=== PATIENT | female | born 1960 | race Two or more races ===

== ENCOUNTER 2017-06-17 13:14 | Emergency (ER) | payer MEDICARE, OTHER ==
[~2017-06-17] VITALS: Ht 157.5 cm; Wt 68.0 kg
--- NOTE | 2017-06-17 13:14 | NUR ---
BBRA FROM DENTIST OFFICE: S/P WITNESSED SEIZURE. Hx OF SEIZURES. NAD NOTED. PT PLACED ON MONITOR. VSS. PENDING MD SLATER.
[2017-06-17 14:29] LABS: CALCIUM, SERUM 8.8 mg/dL (8.5-10.1); CREATININE 1.3 mg/dL (0.6-1.3); POTASSIUM 4.5 mmol/L (3.5-5.1)
[2017-06-17] MEDS ORDERED: IV NS 0.9% 1,000 ML IV PRN (15:00)
[2017-06-17 16:03] VITALS: BP 124/71
== END 2017-06-17 16:05 | disposition home or self-care (01) ==
LOC: ER 13:30
DX: G40.909 Epilepsy, unspecified, not intractable, without status epilepticus (principal); I10 Essential (primary) hypertension; E11.9 Type 2 diabetes mellitus without complications; F17.200 Nicotine dependence, unspecified, uncomplicated; E03.9 Hypothyroidism, unspecified; Z88.6 Allergy status to analgesic agent; Z88.5 Allergy status to narcotic agent; Z86.73 Personal history of transient ischemic attack (TIA), and cerebral infarction without residual deficits
CPT/HCPCS: 36415; 80048-TC; 84484-TC; A4606; J7030; Z7610

== ENCOUNTER 2018-06-30 12:04 | Inpatient (IN) | payer MEDICARE, OTHER ==
[~2018-06-30] VITALS: Ht 157.5 cm; Wt 63.5 kg
[2018-06-30 08:40] VITALS: BP 132/92
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
[2018-06-30] MEDS ORDERED: LORAZEPAM INJ 2 MG/ML VIAL ONE ×3 (12:24→16:46)
[2018-06-30] MEDS ORDERED: LORAZEPAM INJ 2 MG/ML VIAL IVP ONE (12:30)
[2018-06-30 12:35] LABS: BASOPHILS # (AUTO) 0.1 /CMM (0.0-0.2); BASOPHILS % (AUTO) 1.5 % (0.0-2.0); EOSINOPHILS % (AUTO) 0.9 % (0.0-6.0); HEMATOCRIT 35 % (33-45); HEMOGLOBIN 11.8 g/dL (11.5-14.8); MEAN CORPUSCULAR HGB CONC 34 g/dl (31.0-36.0); MEAN CORPUSCULAR VOLUME 98 fL (82-100); MONOCYTES # (AUTO) 0.3 /CMM (0.1-1.30); MONOCYTES % (AUTO) 9.1 % (2.0-12.0); NEUTROPHILS % (AUTO) 58.5 % (43.0-81.0); PLATELET COUNT (AUTO) 132 /CMM (150-450); RED BLOOD CELL COUNT(AUTO) 3.56 MIL/uL (4.0-5.2); WHITE BLOOD COUNT (AUTO) 3.5 K/uL (4.3-11.0)
[2018-06-30 12:45] LABS: CALCIUM, SERUM 8.3 mg/dL (8.5-10.1); CREATININE 0.9 mg/dL (0.6-1.3); POTASSIUM 3.6 mmol/L (3.5-5.1)
--- NOTE | 2018-06-30 13:07 | NUR ---
PT TAKEN TO RADIOLOGY VIA [facility]
--- NOTE | 2018-06-30 13:15 | NUR ---
PER RADIOLOGY, PT UNABLE TO SIT STILL FOR CT. NOTIFIED.
[2018-06-30] MEDS ORDERED: LORAZEPAM INJ 2 MG/ML VIAL IV ONE ×2 (13:30→17:00)
--- NOTE | 2018-06-30 14:01 | NUR ---
DAUGHTER AT BEDSIDE
--- NOTE | 2018-06-30 14:13 | NUR ---
DR BRITTON AT BEDSIDE
[2018-06-30] MEDS: LEVETIRACETAM (500MG) 1,000 MG in IV NS 0.9% 100 ML IV SCH (15:07)
--- NOTE | 2018-06-30 15:30 | NUR ---
PT CONTINUOUSLY BENDING ELBOW, IV CAME OUT. DIFFICULTY STARTING NEW IV, PT NOT SITTING STILL. WILL CONFER WITH CHARGE NURSE.
--- NOTE | 2018-06-30 16:40 | NUR ---
DR CORTES AT BEDSIDE
--- NOTE | 2018-06-30 17:08 | NUR ---
CALLED HOUSE FOR [facility] BED
--- NOTE | 2018-06-30 17:08 | NUR ---
TELE BED 322-5
--- NOTE | 2018-06-30 17:09 | NUR ---
REGGIE FOR INSURANCE APPROVAL
--- NOTE | 2018-06-30 17:12 | NUR ---
PT ASLEEP, DESATTING TO 92%. PLACED ON 2L O2 VIA NC PER DR CORTES. NOW AT 98%
--- NOTE | 2018-06-30 17:53 | NUR ---
MED RECON NURSE AT BEDSIDE
[2018-06-30] MEDS ORDERED: VANCOMYCIN 1 GM VIAL ONE (17:59)
[2018-06-30] MEDS ORDERED: VANCOMYCIN 1 GM in IV D5W 250 ML IV ONE (18:00)
[2018-06-30] MEDS ORDERED: OMEG1CAP55 PO (18:27)
[2018-06-30] MEDS ORDERED: BUPR150T10 PO (18:27)
[2018-06-30] MEDS ORDERED: PRED10TA PO (18:27)
[2018-06-30] MEDS ORDERED: LEVE1000 PO (18:27)
[2018-06-30] MEDS ORDERED: CYCL5TAB PO (18:27)
[2018-06-30] MEDS ORDERED: METH2.5T PO (18:27)
[2018-06-30] MEDS ORDERED: ATOR10TA PO (18:27)
[2018-06-30] MEDS ORDERED: METF-440 PO (18:27)
[2018-06-30] MEDS ORDERED: LEFL20TA PO (18:27)
[2018-06-30] MEDS ORDERED: TRAM50TA2 PO (18:27)
[2018-06-30] MEDS ORDERED: RANI150T8 PO (18:27)
[2018-06-30] MEDS ORDERED: FOLI1TAB16 PO (18:27)
[2018-06-30] MEDS ORDERED: HYDR-3203 PO (18:27)
[2018-06-30] MEDS ORDERED: ENAL20TA PO (18:27)
[2018-06-30] MEDS ORDERED: GABA-534 PO (18:27)
[2018-06-30] MEDS ORDERED: LEVO50TA8 PO (18:27)
[2018-06-30] MEDS ORDERED: OMEP20CA10 PO (18:27)
[2018-06-30] MEDS ORDERED: SERT50TA PO (18:27)
[2018-06-30] MEDS ORDERED: SULF500T46 PO (18:27)
[2018-06-30] MEDS ORDERED: CLOP75TA15 PO (18:27)
[2018-06-30] MEDS ORDERED: MISO200T PO (18:27)
--- NOTE | 2018-06-30 18:36 | NUR ---
REPORT GIVEN TO AVINASH FALL FOR 322-1 TELE.
[2018-06-30] MEDS ORDERED: NORT75CA PO (18:44)
[2018-06-30] MEDS ORDERED: GABA600T12 PO (18:44)
[2018-06-30] MEDS ORDERED: CEPH500C2 PO (18:45)
--- NOTE | 2018-06-30 18:58 | NUR ---
PT TRANSFERRED TO [facility] [facility]IA [facility]. REPORT TO AVINASH PYLE FOR [facility]
[2018-06-30] MEDS ORDERED: Thiamine 100 MG in IV D5W 50 ML IV SCH ×2 (19:00→20:00)
[2018-06-30] MEDS ORDERED: MAGNESIUM HYDROXIDE 30 ML UDC PO PRN (19:00)
[2018-06-30] MEDS ORDERED: ENOXAPARIN SODIUM 40 MG/0.4 ML DISP.SYRIN SQ SCH (19:00)
[2018-06-30] MEDS ORDERED: ACETAMINOPHEN 325 MG TABLET PO PRN (19:00)
[2018-06-30] MEDS ORDERED: Z GUARD REMEDY 2 OZ OINT TP PRN (19:00)
[2018-06-30] MEDS ORDERED: MAG HYDROX/AL HYDROX/SIMETH 30 ML UDC PO PRN (19:00)
[2018-06-30] MEDS ORDERED: LORAZEPAM INJ 2 MG/ML VIAL IV PRN (19:00)
[2018-06-30] MEDS ORDERED: ONDANSETRON HCL/PF 4 MG/2 ML VIAL IVP PRN (19:00)
--- NOTE | 2018-06-30 19:00 | NUR ---
TELE/RN NOTES' PATIENT WAS RECEIVED FROM ER, REPORT MADE TO JUAN DAVID RN BY DEAN RN , PATIENT ARRIVED ON A GURNEY ACCOMPANIED BY DAUGHTER LINWOOD. RECEIVED FROM RN THAT ATIVAN 2 MG WAS GIVEN 1700. ON 2 LITER OXYGEN VIA NC WITH VITAL SIGNS 114/75, PULSE 83, R- 18, TEMPERATURE 97.5 ON 2 LITER AT 100% OXYGENATION, UNABLE TO AROUSE, IN DEEP ,SNORING, , SKIN WARM TO TOUCH. TELE READING SR 86 WITH PBB/ PATIENT ADMITTED DUE TO SEIZURE EPISODE AND WAS REPORTED TO HAVE HAD ALCOHOL INTOXICATION.BELONGINGS CHECKED, ON NPO, LEFT WRIST GAUGE IV VANCOMYCIN GIVEN AT ER, WITH ORDERS ENTERED BY MD TO GIVE . NO SKIN ISSUES NOTED.
--- NOTE | 2018-06-30 19:00 | NUR ---
IV ABX CONTINUE TO INFUSE ON THE FLOOR
[2018-06-30] MEDS ORDERED: FEE PK DOSING 1 MIN EA MC ONE (19:23)
[2018-06-30 20:00] VITALS: BP 114/75
--- NOTE | 2018-06-30 20:00 | NUR ---
TELE/RN OPENING NOTES RECEIVED FROM LUZ DAVIS CLARIFIED THAT PATIENT NEED TO BE TRANSFERED TO [facility] FOR MONITORING. OF SEIZURE. CHARGE NURSE MADE AWARE, AND CABRERA ARMATURE VARNISHER WITH [facility] ROOM 105. TO GIVE REPORT DO [facility] . DAUGHTER TO CALL FOR TRANSFER.
--- NOTE | 2018-06-30 20:40 | NUR ---
[facility] ADMISSION/TRANSFER NOTE PATIENT RECEIVED FROM [facility] IN BED. PATIENT LETHARGIC UNABLE TO VOCALIZE. PATIENT CAN OPEN EYES TO COMMANDS ARE LIGHT SHAKING. PATIENT HAS 20 G IN L HAND PATENT AND INTACT NO S/S OF INFILTRATION. PATIENT 02 SATURATION 100 ON 2L. PATIENT BREATHING EVEN AND UNLABORED. PATIENT IN SO APPARENT S/S OF RESPIRATORY/ CARDIAC DISTRESS. RN WILL CONTINUE TO MONITOR SEIZURE PRECAUTIONS IN PLACE. BED IN LOWEST LOCKED POSITION.
[2018-06-30] MEDS: LEVETIRACETAM SOL (5 ML) 100 MG/ML UDC PO SCH ×2 (21:00→21:17)
[2018-06-30] MEDS: IV NS 0.9% 1,000 ML IV PRN (21:17)
--- NOTE | 2018-06-30 23:55 | NUR ---
RIAN RN NOTE PATIENT AWOKE A/O X 4. PATIENT DENIES CHEST PAIN/ SOB. PATIENT ABLE TO WALK TO THE RESTROOM WITH ASSISTANCE, BEDSIDE COMMODE PROVIDED. INSTRUCTED PATIENT USE CALL LIGHT FOR ANY REASON AND TO CALL WHEN PATIENT NEEDS TO USE THE RESTROOM. PATIENT AGREED.
[2018-07-01] VITALS: BP 113/80
[2018-07-01] MEDS ORDERED: LEVETIRACETAM (500MG) 500 MG/5 ML VIAL IV ONE (03:13)
[2018-07-01] MEDS: LEVETIRACETAM (500MG) 1,000 MG in IV NS 0.9% 100 ML IV SCH (03:22)
[2018-07-01 04:00] VITALS: BP 104/64
[2018-07-01] MEDS ORDERED: VANCOMYCIN 0.75 GM in IV D5W 250 ML IV SCH (06:00)
[2018-07-01 07:06] LABS: BASOPHILS % (AUTO) 0.3 % (0.0-2.0); EOSINOPHILS % (AUTO) 1.3 % (0.0-6.0); HEMATOCRIT 31 % (33-45); HEMOGLOBIN 10.6 g/dL (11.5-14.8); LYMPHOCYTES # (AUTO) 0.9 /CMM (0.8-4.8); LYMPHOCYTES % (AUTO) 21.8 % (20.0-44.0); MEAN CORPUSCULAR HGB CONC 34 g/dl (31.0-36.0); MEAN CORPUSCULAR VOLUME 97 fL (82-100); MONOCYTES # (AUTO) 0.4 /CMM (0.1-1.30); MONOCYTES % (AUTO) 8.8 % (2.0-12.0); NEUTROPHILS # (AUTO) 2.8 /CMM (1.8-8.9); NEUTROPHILS % (AUTO) 67.8 % (43.0-81.0); PLATELET COUNT (AUTO) 119 /CMM (150-450); RED BLOOD CELL COUNT(AUTO) 3.24 MIL/uL (4.0-5.2); WHITE BLOOD COUNT (AUTO) 4.1 K/uL (4.3-11.0)
[2018-07-01 07:24] LABS: THYROID STIMULATING HORMONE 0.602 uIU/mL (0.358-3.74)
[2018-07-01 07:27] LABS: CALCIUM, SERUM 8.7 mg/dL (8.5-10.1); CREATININE 0.9 mg/dL (0.6-1.3); MAGNESIUM 1.3 mg/dL (1.8-2.4); PHOSPHORUS 3.1 mg/dL (2.5-4.9); POTASSIUM 3.7 mmol/L (3.5-5.1)
--- NOTE | 2018-07-01 07:30 | NUR ---
RN NOTES RECEIVED PATIENT IN BED AND SLEEPING COMFORTABLY. EASILY AROUSABLE. PATIENT IS ALERT AND ORIENTED X4. NO PAIN OR ACUTE DISTRESS AT THIS TIME. RESPIRATION EVEN AND UNLABORED. SKIN IS DRY WARM TO TOUCH. NOTED WITH IV ACCESS ON LEFT HAND. PLAN OF CARE DISCUSSED WITH PATIENT. ALL NEED ANTICIPATED. SAFETY MEASURES OBSERVED. WILL CONTINUE TO MONITOR.
[2018-07-01 08:00] VITALS: BP 145/98
[2018-07-01] MEDS ORDERED: VIT B CMPLX 3/FA/VIT C/BIOTIN 1 TAB TABLET PO SCH (09:00)
[2018-07-01] MEDS ORDERED: PANTOPRAZOLE 40 MG VIAL IV SCH (09:00)
[2018-07-01] MEDS: LEVETIRACETAM SOL (5 ML) 100 MG/ML UDC PO SCH (09:17)
[2018-07-01] MEDS ORDERED: OMEPRAZOLE 20 MG CAPSULE.DR PO PRN (10:30)
[2018-07-01] MEDS ORDERED: THIAMINE HCL 100 MG TABLET PO SCH (12:00)
[2018-07-01] MEDS: GABAPENTIN 300 MG CAPSULE PO SCH ×2 (12:40→17:45)
[2018-07-01] MEDS: Magnesium 1GM/D5W 100ML PREMIX 100 ML IV SCH ×4 (12:40→16:09)
[2018-07-01] MEDS ORDERED: ENALAPRIL MALEATE (10 MG) 10 MG TABLET PO SCH (13:00)
[2018-07-01] MEDS ORDERED: SULFASALAZINE 500 MG TABLET PO SCH ×2 (13:00→17:00)
[2018-07-01] MEDS: IV NS 0.9% 1,000 ML IV PRN (14:07)
[2018-07-01] MEDS ORDERED: DEXTROSE 50%-WATER 50 ML DISP.SYRIN IV PRN (15:00)
[2018-07-01] MEDS ORDERED: INSULIN REGULAR, HUMAN 100 UNIT/ML 3 ML VIAL SQ PRN (15:00)
[2018-07-01 16:00] VITALS: BP 133/88
[2018-07-01] MEDS ORDERED: MISOPROSTOL 100 MCG TABLET PO SCH (17:00)
[2018-07-01] MEDS ORDERED: Medication Not On Formulary EA (Levetiracetam (Keppra) 1,000 MG) PO SCH (17:00)
[2018-07-01] MEDS ORDERED: Medication Not On Formulary EA (Omega-3 Acid Ethyl Esters (Lovaza) 2 CAP) PO SCH (17:00)
[2018-07-01] MEDS ORDERED: buPROPion SR 150 MG TABLET.ER PO SCH (17:00)
[2018-07-01] MEDS ORDERED: HYDROXYCHLOROQUINE 200 MG TABLET PO SCH (17:00)
[2018-07-01] MEDS ORDERED: BLOOD SUGAR DIAGNOSTIC 1 EACH STRIP IN SCH (17:30)
[2018-07-01] MEDS ORDERED: SUCRALFATE 1 G TABLET PO SCH (17:30)
[2018-07-01] MEDS ORDERED: NORT25CA PO (17:46)
[2018-07-01] MEDS ORDERED: PRED5TAB48 PO (17:47)
[2018-07-01] MEDS ORDERED: LEFL20TA PO (17:48)
[2018-07-01] MEDS ORDERED: SULF500T8 PO (17:49)
[2018-07-01] MEDS ORDERED: HYDR200T81 PO (17:50)
[2018-07-01] MEDS ORDERED: SUCR1TAB31 PO (17:53)
[2018-07-01] MEDS ORDERED: CYCLOBENZAPRINE 10 MG TABLET PO SCH (18:00)
[2018-07-01] MEDS ORDERED: ATORVASTATIN 10 MG TABLET PO SCH (18:00)
--- NOTE | 2018-07-01 18:41 | NUR ---
Met with patient, she is alert and pleasant. States she lives locally with her brother in law in a single level home. She ambulates without assistive device. She has hx of diabetes and reports she has a glucometer at home to monitor her blood sugar. She plan to return home, brother in law Ross Dorado [phone] will provide ride when discharge. Addendum: 07/01/18 at 1842 by LUANN MORENO RN Amended: Links added.
--- NOTE | 2018-07-01 19:00 | NUR ---
MS RN NOTES IV REMOVED.
--- NOTE | 2018-07-01 19:09 | NUR ---
MS RN NOTES PT INSISTING ON LEAVING HOSPITAL AMA. LUZ PAGE NP NOTIFIED. TRIED TO MAKE CONTACT WITH FAMILY BUT UNSUCCESSFUL. CHARGE NURSE NOTIFIED.
[2018-07-01] MEDS ORDERED: TRAMADOL HCL 50 MG TABLET PO SCH (21:00)
[2018-07-01] MEDS ORDERED: NORTRIPTYLINE HCL 25 MG CAPSULE PO SCH ×2 (22:00)
[2018-07-02] MEDS ORDERED: predniSONE 5 MG TABLET PO SCH (09:00)
[2018-07-02] MEDS ORDERED: SERTRALINE HCL 50 MG TABLET PO SCH (09:00)
[2018-07-02] MEDS ORDERED: LEVOTHYROXINE SODIUM 50 MCG TABLET PO SCH (09:00)
[2018-07-02] MEDS ORDERED: CLOPIDOGREL BISULFATE 75 MG TABLET PO SCH (09:00)
[2018-07-02] MEDS ORDERED: predniSONE 10 MG TABLET PO SCH (09:00)
[2018-07-02] MEDS ORDERED: LEFLUNOMIDE 10 MG TABLET PO SCH ×2 (09:00)
[2018-07-02] MEDS ORDERED: FAMOTIDINE (20 MG) 20 MG TABLET PO SCH (09:00)
[2018-07-05] MEDS ORDERED: METHOTREXATE SODIUM (2.5MG) 2.5 MG TABLET PO SCH (09:00)
== END 2018-07-01 20:29 | disposition left against medical advice (07) | DRG 101 ==
LOC: ER 12:12 → TELE 18:14 → TELE-TD 20:28 → MEDSG1 07-01 10:40
PROVIDERS: ADMIT Registered Nurse; ATTEND Registered Nurse
DX: G40.509 Epileptic seizures related to external causes, not intractable, without status epilepticus (principal); F10.231 Alcohol dependence with withdrawal delirium; F10.229 Alcohol dependence with intoxication, unspecified; I10 Essential (primary) hypertension; H70.91 Unspecified mastoiditis, right ear; D69.6 Thrombocytopenia, unspecified; E78.5 Hyperlipidemia, unspecified; M06.9 Rheumatoid arthritis, unspecified; Z88.5 Allergy status to narcotic agent; Z88.8 Allergy status to other drugs, medicaments and biological substances; Z79.84 Long term (current) use of oral hypoglycemic drugs; Z79.02 Long term (current) use of antithrombotics/antiplatelets; Z79.899 Other long term (current) drug therapy; Z86.73 Personal history of transient ischemic attack (TIA), and cerebral infarction without residual deficits; Z79.890 Hormone replacement therapy; Z91.19 Patient's noncompliance with other medical treatment and regimen; Z91.14 Patient's other noncompliance with medication regimen; E66.01 Morbid (severe) obesity due to excess calories; Z68.25 Body mass index [BMI] 25.0-25.9, adult; H70.90 Unspecified mastoiditis, unspecified ear; E05.90 Thyrotoxicosis, unspecified without thyrotoxic crisis or storm
CPT/HCPCS: 36415; 70450-TC; 80048-TC; 80061-TC; 80177; 80202-TC; 82962-TC; 83605-TC; 83735-TC; 84100-TC; 84443-TC; 85025-TC; 87040-TC; 87081-TC; C9113; G0378; J1650; J1815; J1953; J2060; J3370; J3411; J3475; J7030; J7060

== ENCOUNTER → 2018-11-03 | Emergency (ER) | payer MEDICARE, OTHER ==
[~2018-11-03] VITALS: Ht 157.5 cm; Wt 65.3 kg
[~2018-11-03] MED LIST: ATOR10TA PO; BUPR150T10 PO; CEPH500C2 PO; CLOP75TA15 PO; CYCL5TAB PO; ENAL20TA PO; FOLI1TAB16 PO; GABA-534 PO; GABA600T12 PO; HYDR-3203 PO; HYDR200T81 PO; HYDROCODONE/APAP 10/325MG 1 EA TABLET PO ONE; HYDROCODONE/APAP 5/325MG 1 EACH TABLET ONE; LEFL20TA PO; LEVE1000 PO; LEVO50TA8 PO; METF-440 PO; METH2.5T PO; NORT25CA PO; OMEG1CAP55 PO; OMEP20CA11 PO; PRED5TAB48 PO; RANI150T8 PO; SERT50TA PO; SUCR1TAB31 PO; SULF500T8 PO; TRAM50TA2 PO
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
[2018-11-03 17:58] VITALS: BP 123/79
--- NOTE | 2018-11-03 18:22 | NUR ---
PATIENT AWAKE ALERT NOTED ABLE TO AMBULATED TO REST ROOM SLOW BUT ABLE TO MANAGE TO GO BACK TO HER ROOM ,CONTINUE TO MONITOR
--- NOTE | 2018-11-03 18:37 | NUR ---
DC HOME INTRUCTION GIVEN AGREES TO CALL PMD IN 2 DAYS VERBALIZED UNDERSTANDING ,PATIENT FAMILY APRRECIATED
== END | disposition home or self-care (01) ==
LOC: ER 16:36
DX: S20.212A Contusion of left front wall of thorax, initial encounter (principal); I10 Essential (primary) hypertension; E11.9 Type 2 diabetes mellitus without complications; G40.909 Epilepsy, unspecified, not intractable, without status epilepticus; M06.9 Rheumatoid arthritis, unspecified; E03.9 Hypothyroidism, unspecified; F17.200 Nicotine dependence, unspecified, uncomplicated; Z88.6 Allergy status to analgesic agent; Z88.5 Allergy status to narcotic agent; Z79.899 Other long term (current) drug therapy; Z79.84 Long term (current) use of oral hypoglycemic drugs; W18.39XA Other fall on same level, initial encounter; Y93.89 Activity, other specified; Y92.89 Other specified places as the place of occurrence of the external cause; Y99.8 Other external cause status
CPT/HCPCS: 36415; 70450-TC; 71250-TC; G0480

== ENCOUNTER 2019-10-03 16:39 | Emergency (ER) | payer OTHER ==
[~2019-10-03] VITALS: Ht 165.1 cm; Wt 72.6 kg
[~2019-10-03 16:39] MED LIST changes: -HYDROCODONE/APAP 10/325MG 1 EA TABLET PO ONE; -HYDROCODONE/APAP 5/325MG 1 EACH TABLET ONE; -OMEP20CA11 PO; +OMEP20CA15 PO
--- NOTE | 2019-10-03 17:00 | NUR ---
benton, c/o shaking s/p double dosing of wellbutrin. On room air, breathing evenly and unlabored. connected to the monitor and pulse ox. kept comfortable, will continue to monitor accordingly.
[2019-10-03] MEDS ORDERED: LISI10TA5 PO (17:16)
[2019-10-03] MEDS ORDERED: HYDR200T4 PO (17:21)
[2019-10-03 18:44] LABS: BASOPHILS # (AUTO) 0.1 /CMM (0.0-0.2); BASOPHILS % (AUTO) 1.3 % (0.0-2.0); EOSINOPHILS % (AUTO) 1.5 % (0.0-6.0); HEMATOCRIT 40 % (33-45); LYMPHOCYTES # (AUTO) 1.7 /CMM (0.8-4.8); LYMPHOCYTES % (AUTO) 37.2 % (20.0-44.0); MEAN CORPUSCULAR HGB CONC 33 g/dl (31.0-36.0); MEAN CORPUSCULAR VOLUME 94 fL (82-100); MONOCYTES # (AUTO) 0.4 /CMM (0.1-1.30); MONOCYTES % (AUTO) 8.9 % (2.0-12.0); NEUTROPHILS # (AUTO) 2.3 /CMM (1.8-8.9); NEUTROPHILS % (AUTO) 51.1 % (43.0-81.0); PLATELET COUNT (AUTO) 263 /CMM (150-450); RED BLOOD CELL COUNT(AUTO) 4.24 MIL/uL (4.0-5.2); WHITE BLOOD COUNT (AUTO) 4.4 K/uL (4.3-11.0)
[2019-10-03 19:04] LABS: APPEARANCE,URINE Slightly Cloudy (CLEAR); BILIRUBIN,URINE Negative (NEGATIVE); BLOOD, URINE Trace-lysed Ery/uL (NEGATIVE); COLOR,URINE Yellow (YELLOW); KETONES,URINE Negative (NEGATIVE); LEUKOCYTE ESTERASE ,URINE Trace (NEGATIVE); NITRITE, URINE Negative (NEGATIVE); PROTEIN,URINE Negative (NEGATIVE); UGLUCOSE Negative (NEGATIVE); UROBILINOGEN,URINE 0.2 EU/dL (0.2)
[2019-10-03 19:06] LABS: CALCIUM, SERUM 9.1 mg/dL (8.5-10.1); CARBON DIOXIDE 23 mmol/L (21-32); CHLORIDE 103 mmol/L (98-107); CREATININE 0.9 mg/dL (0.6-1.3); GLUCOSE 82 mg/dL (74-106); POTASSIUM 3.6 mmol/L (3.5-5.1); SODIUM SERUM 142 mmol/L (136-145); UREA NITROGEN, BLOOD 14 mg/dL (7-18)
[2019-10-03 19:13] LABS: ALANINE AMINOTRANSFERASE 27 U/L (12-78); ALCOHOL, BLOOD 152 mg/dL (0-0); ALKALINE PHOSPHATASE 61 U/L (46-116); ASPARTATE AMINOTRANSFERASE 32 U/L (15-37); BILIRUBIN,DIRECT 0.1 mg/dL (0.0-0.2); BILIRUBIN,TOTAL 0.2 mg/dL (0.2-1.0); SALICYLATE 2.8 mg/dL (2.8-20.0); TOTAL PROTEIN, SERUM 7.9 g/dL (6.4-8.2)
[2019-10-03 19:17] LABS: BACTERIA,URINE Moderate /HPF (None Seen); SQUAMOUS EPITHELIAL CELL,UR Few /HPF (None Seen)
[2019-10-03 19:18] LABS: ACETAMINOPHEN < 2 ug/ml (10-30)
--- NOTE | 2019-10-03 19:34 | NUR ---
PT HAS NO MEDICAL COMPLAINTS AT THIS TIME.VSS.
[2019-10-03 19:50] LABS: THYROID STIMULATING HORMONE 0.397 uIU/mL (0.358-3.74)
[2019-10-03] MEDS ORDERED: LORAZEPAM 1 MG TABLET ONE (19:53)
[2019-10-03] MEDS: LORAZEPAM 1 MG TABLET PO ONE (20:01)
--- NOTE | 2019-10-03 20:12 | NUR ---
Patient discharged to home in stable condition. Written and verbal after care instructions given. Patient verbalizes understanding of instruction.IV removed. Catheter intact and site benign. Pressure and 4x4 applied to site. No bleeding noted.
[2019-10-03 20:13] VITALS: BP 99/114
--- NOTE | 2019-10-03 20:13 | NUR ---
pt. ambulatory with a steady gait
== END 2019-10-03 20:14 | disposition home or self-care (01) ==
LOC: ER 16:41
DX: F10.10 Alcohol abuse, uncomplicated (principal); R00.0 Tachycardia, unspecified; E03.9 Hypothyroidism, unspecified; I10 Essential (primary) hypertension; E11.9 Type 2 diabetes mellitus without complications; E78.5 Hyperlipidemia, unspecified; Y90.6 Blood alcohol level of 120-199 mg/100 ml; Z98.890 Other specified postprocedural states; Z88.6 Allergy status to analgesic agent; Z88.5 Allergy status to narcotic agent; Z79.899 Other long term (current) drug therapy; Z79.84 Long term (current) use of oral hypoglycemic drugs
CPT/HCPCS: 36415; 80048; 80076; 80305; 80307; 80329; 81001; 82962; 83690; 84439; 84443; 85025; 87086; 93005; 99283; G0480; 81000-TC

== ENCOUNTER 2020-07-13 21:51 | Emergency (ER) | payer OTHER ==
[~2020-07-13] VITALS: Ht 157.5 cm; Wt 61.2 kg
[2020-07-13 21:51] VITALS: BP 187/130
[~2020-07-13 21:51] MED LIST changes: -CEPH500C2 PO; -ENAL20TA PO; +ENAL20TA18 PO; -HYDR-3203 PO; +HYDR-4279 PO; +HYDR200T4 PO; -HYDR200T81 PO; +LISI10TA29 PO
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
[2020-07-13] MEDS ORDERED: HYDROCODONE/APAP 10/325MG TABLET ONE (22:46)
[2020-07-13] MEDS: HYDROCODONE/APAP 10/325MG TABLET PO ONE (22:48)
--- NOTE | 2020-07-13 22:48 | NUR ---
MEDICATED FOR PAIN PER PA'S ORDER, PT NEFTALI WELL. [employer] OFFICERS AT BS.
[2020-07-13] MEDS ORDERED: ONDANSETRON 4 MG TAB.RAPDIS ONE (23:15)
[2020-07-13] MEDS: ONDANSETRON 4 MG TAB.RAPDIS SL ONE (23:23)
--- NOTE | 2020-07-13 23:29 | NUR ---
PT ARMANDO NAYAK PA AWARE.
== END 2020-07-13 23:30 | disposition home or self-care (01) ==
LOC: ER 21:52
DX: M54.5 Low back pain (principal); I10 Essential (primary) hypertension; E11.9 Type 2 diabetes mellitus without complications; M06.9 Rheumatoid arthritis, unspecified; E03.9 Hypothyroidism, unspecified; F17.200 Nicotine dependence, unspecified, uncomplicated; Z88.6 Allergy status to analgesic agent; Z88.5 Allergy status to narcotic agent; Z79.899 Other long term (current) drug therapy; Z79.84 Long term (current) use of oral hypoglycemic drugs; Y08.89XA Assault by other specified means, initial encounter; Y93.89 Activity, other specified; Y92.89 Other specified places as the place of occurrence of the external cause; Y99.8 Other external cause status
CPT/HCPCS: Q0162

== ENCOUNTER 2022-05-18 00:54 | Emergency (ER) | payer MEDICARE, OTHER ==
[~2022-05-18] VITALS: Ht 157.5 cm; Wt 65.8 kg
--- NOTE | 2022-05-18 01:05 | NUR ---
BIBRA39 FROM HOME WITH CC ABDOMINAL PAIN AND NAUSEA SINCE MORNING. 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 PATIENT AAOX4. ABLE TO MAKE NEEDS KNOWN. PLACED COMFORTABLY IN BED. VITALS CHECKED
[2022-05-18 01:26] LABS: BASOPHILS # (AUTO) 0.1 K/uL (0.0-0.2); EOSINOPHILS % (AUTO) 0.5 % (0.0-6.0); HEMATOCRIT 42 % (33-45); LYMPHOCYTES # (AUTO) 0.9 K/uL (0.8-4.8); LYMPHOCYTES % (AUTO) 12.5 % (20.0-44.0); MEAN CORPUSCULAR HGB CONC 33 g/dl (31.0-36.0); MEAN CORPUSCULAR VOLUME 102 fL (82-100); MONOCYTES # (AUTO) 0.5 K/uL (0.1-1.30); MONOCYTES % (AUTO) 6.8 % (2.0-12.0); NEUTROPHILS # (AUTO) 5.6 K/uL (1.8-8.9); NEUTROPHILS % (AUTO) 78.2 % (43.0-81.0); PLATELET COUNT (AUTO) 184 K/uL (150-450); RED BLOOD CELL COUNT(AUTO) 4.15 MIL/uL (4.0-5.2); WHITE BLOOD COUNT (AUTO) 7.2 K/uL (4.3-11.0)
[2022-05-18 01:39] LABS: ALBUMIN 4.7 g/dL (3.4-5.0); BILIRUBIN,DIRECT 0.4 mg/dL (0.0-0.2); BILIRUBIN,TOTAL 1.2 mg/dL (0.2-1.0); CALCIUM, SERUM 9.9 mg/dL (8.5-10.1); CREATININE 1.1 mg/dL (0.6-1.3); TOTAL PROTEIN, SERUM 8.3 g/dL (6.4-8.2)
--- NOTE | 2022-05-18 01:45 | NUR ---
PATIENT SENT TO RADIOLOGY FOR CT Addendum: 05/18/22 at 0213 by GURDEEP PATIENT BACK FROM CT
[2022-05-18] MEDS ORDERED: IOHEXOL-350 100 ML VIAL IV ONE (01:47)
[2022-05-18] MEDS ORDERED: IV NS 0.9% 250 ML IV ONE (01:47)
[2022-05-18] MEDS ORDERED: CT SWABBABLE VALVE TRANS SET 1 EA INFUS.SET MC ONE (01:47)
[2022-05-18] MEDS ORDERED: MORPHINE SULFATE INJ 4 MG/ML DISP.SYRIN ONE (02:24)
[2022-05-18] MEDS ORDERED: MORPHINE SULFATE INJ 2 MG/ML DISP.SYRIN IV ONE (02:30)
[2022-05-18] MEDS ORDERED: OMEP20CA15 PO (04:27)
--- NOTE | 2022-05-18 05:11 | NUR ---
IV LEVY REMOVED
--- NOTE | 2022-05-18 05:11 | NUR ---
Patient discharged to home in stable condition. Written and verbal after care instructions given. Patient verbalizes understanding of instruction.
--- NOTE | 2022-05-18 05:19 | NUR ---
PT WAITING FOR A RIDE HOME AT BEDSIDE
[2022-05-18 05:24] VITALS: BP 148/98
== END 2022-05-18 05:25 | disposition home or self-care (01) ==
LOC: ER 00:56
DX: K44.9 Diaphragmatic hernia without obstruction or gangrene (principal); I10 Essential (primary) hypertension; E11.9 Type 2 diabetes mellitus without complications; E03.9 Hypothyroidism, unspecified; F17.200 Nicotine dependence, unspecified, uncomplicated; Z79.899 Other long term (current) drug therapy; Z88.8 Allergy status to other drugs, medicaments and biological substances; Z88.5 Allergy status to narcotic agent
CPT/HCPCS: 99284; 74174; 96374; 85025; 80048; 83690; 80076; 36415; J2270; J7050; Q9967

== ENCOUNTER 2022-11-11 22:34 | Emergency (ER) | payer OTHER, MEDICAID ==
[~2022-11-11] VITALS: Ht 160 cm; Wt 68.9 kg
[2022-11-11] MEDS ORDERED: HYDROCODONE/APAP 5/325MG TABLET PO ONE (23:30)
[2022-11-11] MEDS ORDERED: FLUORESCEIN SODIUM OPHTH 1 EA STRIP OP ONE (23:30)
[2022-11-11] MEDS ORDERED: TETRAcaine 5 ML BOTTLE LEFTEYE ONE (23:30)
[2022-11-11] MEDS ORDERED: FLUORESCEIN SODIUM OPHTH 1 EA STRIP ONE (23:52)
[2022-11-12] MEDS ORDERED: HYDROCODONE/APAP 5/325MG TABLET ONE (00:05)
[2022-11-12] MEDS ORDERED: POLY10DR OP (02:16)
[2022-11-12] MEDS ORDERED: ACET-73 PO (02:16)
[2022-11-12 02:50] VITALS: BP 141/89; TEMP 98.5; O2SAT 99
== END 2022-11-12 02:51 | disposition home or self-care (01) ==
LOC: ER 22:54
DX: S00.12XA Contusion of left eyelid and periocular area, initial encounter (principal); I10 Essential (primary) hypertension; E11.9 Type 2 diabetes mellitus without complications; E03.9 Hypothyroidism, unspecified; F17.200 Nicotine dependence, unspecified, uncomplicated; Z88.5 Allergy status to narcotic agent; Z88.8 Allergy status to other drugs, medicaments and biological substances; Z79.84 Long term (current) use of oral hypoglycemic drugs; Z79.899 Other long term (current) drug therapy; Y04.0XXA Assault by unarmed brawl or fight, initial encounter; Y93.89 Activity, other specified; Y92.89 Other specified places as the place of occurrence of the external cause; Y99.8 Other external cause status
CPT/HCPCS: 70486-TC